=== PATIENT | male | born 1985 | race Two or more races ===

== ENCOUNTER 2021-03-07 11:49 | Outpatient (REF) | payer MEDICAID, SELFPAY ==
--- NOTE | ~2021-03-07 | XR_ITS ---
EXAMINATION: XR LUMBOSACRAL SPINE WITH OBLIQUES CLINICAL INFORMATION: Low back pain. COMPARISON: 10/12/2017 TECHNIQUE: AP, both oblique, and lateral views of the lumbar spine. Lateral view of the lumbosacral junction. FINDINGS: There are 5 lwe-crp-yzcfald lumbar vertebrae. Pedicles are intact. No acute fracture, spondylolisthesis, or spondylolysis identified. Disc spaces are maintained. There is mild anterior spurring seen at T11 through L1. No significant sacroiliac joint abnormality is appreciated. No significant change from previous study. XR/XR lumbar spine 4V min IMPRESSION: Mild lumbar spondylosis without acute fracture, spondylolisthesis, or spondylolysis.
== END 2021-03-07 11:50 | disposition home or self-care (01) ==
LOC: HO.XRAY 11:49
PROVIDERS: PCP Registered Nurse; Visit Provider Registered Nurse
DX: M54.50 Low back pain, unspecified (principal)
CPT/HCPCS: 72110

== ENCOUNTER 2024-02-10 07:57 | Outpatient (AMB) | payer OTHER, SELFPAY ==
[2024-02-10 08:06] VITALS: BP 110/74; PULSE 77; O2SAT 96; BMI 32.9
--- NOTE | 2024-02-10 08:06 | A.OFFPC_ITS ---
Vital Signs 02/10/24 08:06 Height 5 ft 6 in Weight 204 lb BMI 32.9 BP 110/74 Blood Pressure Location Lt brachial Position Sitting Pulse 77 Pulse Source Pulse Oximeter Pulse Oximetry (%) 96 Oxygen Delivery Method Room Air Intake Visit Reasons: annual exam/establish care Clinical Quality Analyst Required: No Allergies No Known Allergies [No Known Allergies*] Allergy (Verified 02/10/24 08:19) Medication List - Last Reconciled 02/10/24 by Genie Dean PA-C albuterol sulfate 90 mcg/actuation 2 puffs inhalation QID PRN Tobacco use date assessed: 02/10/24 Dental Screening Dental Screen Date: 02/10/24 Did you have a dental visit in the last 12 months?: No Did you have a dental problem in the last 6 months where you did not have access to dental care?: No HPI annual exam/establish care HPI Details 38-year-old male coming to the office fo r the 1st time. Previously a patient at [facility] last seen 2 years ago. He does have a history of asthma and uses albuterol inhaler daily and occasionally multiple times per day. He mentions he has increased wheezing at nighttime without nighttime awakenings. He does mentioned he has a dry patch of skin on the inside of his elbow and he has been using hydrocortisone cream on with some mild improvement. Otherwise has no acute concerns today [facility] Family History (Updated 02/10/24 @ 08:20 by Genie Dean PA-C) Father HIV (human immunodeficiency virus infection) Social History Housing: House Patient Tobacco Use Status: Former Tobacco user Tobacco use type: Cigarette service: No Current occupational status: employed Cognitive needs: No Hearing needs: No Vision needs: No Questionnaire PHQ-9 Over the last 2 weeks, how often have you been bothered by any of the following problems? 1. Little interest or pleasure in doing things: not at all 2. Feeling down, depressed, or hopeless: not at all 3. Trouble falling or staying asleep, or sleeping too much: not at all 4. Feeling tired or having little energy: not at all 5. Poor appetite or overeating: several days 6. Feeling bad about yourself - or that you are a failure or have let yourself or your family down: not at all 7. Trouble concentrating on things, such as reading the newspaper or watching television: not at all 8. Moving or speaking so slowly that other people could have noticed. Or the opposite - being so fidgety or restless that you have been moving around a lot more than usual: not at all 9. Thoughts that you would be better off or of hurting yourself in some way: not at all Total score: 1 Depression Screening Interpretation: Negative Depression Screening Done: Yes 62250 - PHQ-9 Billing: Yes Source: Developed by Drs. Amaury Erickson, Amy Caraballo, Sánchez Osborne and colleagues, with an educational rah from [employer]. Thrive Questionnaire I am a: Patient What is your living situation today?: I have a steady place to live Within the past 12 months, did the food you bought not last and you didn't have the money to get more?: Never true Within the past 12 months, did you worry whether your food would run out before you got money to buy more?: Never true Do you have trouble paying for medicines?: Yes Do you have trouble getting transportation to medical appointments?: No Do you have trouble paying your heating and electricity bill?: No Do you have trouble taking care of your child, family member or friend?: No Do you have trouble with day-to-day activities such as bathing, preparing meals, shopping, managing finances, etc.?: No Are you currently unemployed and looking for a job?: No Are you interested in more education?: No Please select the resources that you would like help with: Paying for medicine Currently or been in a relationship where the following occur: No concerns reported THRIVE Score: 0 AUDIT C Alcohol Use Questionnaire (AUDIT-C) 1. How often do you have a drink containing alcohol?: Monthly or less 2. How many drinks containing alcohol do you have on a typical day when you are drinking?: 1 or 2 3. How often do you have six or more drinks on one occasion?: Never Total Score: 1 RENNY-7 AMB Questionnaire RENNY-7 Date RENNY - 7 assessed: 02/10/24 Feeling nervous, anxious, or on edge: 0 = Not at all Not being able to stop or control worryin = Not at all Worrying too much about different things: 0 = Not at all Trouble relaxin = Not at all Being so restless that it is hard to sit still: 0 = Not at all Becoming easily annoyed or irritable: 0 = Not at all Feeling afraid as if something awful might happen: 0 = Not at all Total RENNY-7 score (0-4 normal; 5-9 mild; 10-14 moderate; 15-21 severe): 0 Source: Developed by Drs. Amaury Erickson, Amy Caraballo, Sánchez Osborne and colleagues, with an educational rah from [employer]. RENNY-7 Assessment Billing RENNY-7 Assessment Tool: RENNY-7 Assessment 84146 Review of Systems Const Denies body aches, Denies fatigue, Denies fever(s), Denies frequent falls, Denies headache(s) and Denies weakness Eyes Denies change in vision and Reports requires corrective lenses ENT Denies dysphagia, Denies dizziness, Denies facial pain, Denies headache(s) and Denies odynophagia Card Denies chest pain, Denies syncope, Denies irregular heart rhythm, Denies leg edema, Denies lightheadedness and Reports dyspnea (with asthma) Resp Denies cough, Reports dyspnea (with asthma) and Reports wheezing (at night ) GI Denies abdominal pain, Denies constipation, Denies dysphagia, Denies dyspepsia, Denies diarrhea, Denies nausea, Denies odynophagia and Denies vomiting Denies dysuria, Denies urinary frequency, Denies urinary hesitancy and Denies urinary urgency Musc Reports back pain (low back pain) and Denies myalgias Skin/Breast Reports system reviewed and no additional complaints, except as documented Neuro Denies dizziness, Denies syncope, Denies frequent falls, Denies headache(s) and Denies weakness Psych Reports no additional complaints Endo Denies fatigue Aller/Immun Reports wheezing (at night ) Physical exam (Primary Care) Vital Signs: Last Vital Signs Pulse 77 02/10/24 08:06 BP 110/74 02/10/24 08:06 Pulse Ox 96 02/10/24 08:06 Oxygen Delivery Method Room Air 02/10/24 08:06 BMI result Body Mass Index 32.9 Tobacco/Smoking Status: Tobacco use Status Tobacco use date assessed 02/10/24 02/10/24 08:09 Patient Tobacco Use Status Former Tobacco user 02/10/24 08:10 Tobacco use type Cigarette 02/10/24 08:13 PHQ-9: PHQ-9 Score PHQ-9: Total score 1 02/10/24 08:13 Depression Screening Interpretation: Negative Currently or been in a relationship where the following occur: No concerns reported Const General: cooperative, healthy appearing, comfortable and no acute distress Orientation/consciousness: patient oriented x3 HENMT Head: Yes normocephalic Ears: hearing grossly normal bilaterally, external ears normal, TM's normal bilaterally and EAC's normal General nose exam: Normal external nose present Face and sinus: Yes normal facial exam and Yes sinuses nontender Mouth: Normal oral and palatal mucosa present and tongue normal Throat: Yes posterior oropharynx normal Eyes General: appearance normal, both eyes and all related structures Conjunctivae: conjunctivae normal Pupils: Equal, round and reactive pupils present EOM: EOMs intact bilaterally and No Nystagmus present Neck Neck: Yes normal visual inspection, Yes full ROM and Yes no lymphadenopathy Carotids: no bruits Chest Chest palpation & inspection: normal inspection of the chest Resp Effort & Inspection: normal respiratory effort Auscultation: clear to auscultation bilaterally, no crackles, no rales, no rhonchi, no wheezes and breath sounds present Cardio Rate: regular rate Rhythm: regular rhythm Peripheral pulses: radial pulses present and dorsalis pedis present GI Inspection: Yes normal to inspection and No Abdominal wall edema Palpation (GI): Soft to palpation, not firm and nontender Auscultation: normal bowel sounds Rectal Exam - Male: Yes deferred General: Yes no CVA tenderness Back/Spine/Pelvis Back: no CVA tenderness Skin Other: Patch of eczematous rash over right antecubital fossa Neuro General: patient oriented x3 Cranial nerves: Yes Equal, round and reactive pupils present, Yes Midline tongue present, Yes Ability to bilaterally elevate shoulders present and No Nystagmus present Gait exam (Neuro): Normal gait present Extrem General: Yes normal to inspection, Yes full ROM, No no pedal edema and No edema Psych Speech and movement: Normal speech and movement present Affect: normal affect Insight: Good insight present (Psych) Judgement: Good judgement present (Psych) Coding Level of Care Code New Pt Level 3 (94876) New Pt Prev Care 40-64y(89891) Diagnoses Asthma J45.909 Eczema L30.9 Annual physical exam Z00.00 Additional Codes RENNY-7 Assessment Billing - RENNY-7 Assessment Tool: RENNY-7 Assessment 60269 ([id number]) Assessment & Plan Assessment & Plan (1) Asthma: Code(s): J45.909 - Unspecified asthma, uncomplicated Category: Medical Plan: Patient's asthma is not well controlled at this time as he uses his albuterol inhaler multiple times per day. Advised adding inhaled corticosteroid to medication regimen and following up in 3 months. If symptoms do not improve or worsen please reach out to the office before your next appointment. (2) Eczema: Code(s): L30.9 - Dermatitis, unspecified Category: Medical Plan: Patient has eczematous rash over right antecubital fossa advised using triam cinolone cream as needed for flares do not use his cream more than 2 weeks at a time. May use Aquaphor or Eucerin for maintenance therapy. (3) Annual physical exam: Code(s): Z00.00 - Encounter for general adult medical examination without abnormal findings Category: Medical Plan: Patient is up-to-date on all recommended routine screenings and vaccinations for his age. Updated blood work ordered and we will follow up in 3 months for follow up on asthma. Plan This note was constructed using voice recognition software. While every effort has been made to ensure accuracy and hand molder and caster, still areas may have been included sometimes these areas may affect the content or meeting of the given symptoms. Total time spent caring for the patient today was 30 minutes. This includes time spent before the visit reviewing the chart, time spent during the visit, and time spent after the visit and documentation. Orders: Orders Comprehensive Met. Panel Today Z00.00 - Encounter for general adult medical examination without abnormal findings UA CC w/rflx Micro + Cult Today R35.89 - Other polyuria Complete Blood Count Auto Diff Today Z00.00 - Encounter for general adult medical examination without abnormal findings Free T4 (Free Thyroxine) Today Z00.00 - Encounter for general adult medical examination without abnormal findings Hemoglobin A1c Today Z00.00 - Encounter for general adult medical examination without abnormal findings Lipid Panel Today Z00.00 - Encounter for general adult medical examination without abnormal findings Vitamin D 25-OH (D2 and D3) Today Z00.00 - Encounter for general adult medical examination without abnormal findings Vitamin B12 and Folate Today Z00.00 - Encounter for general adult medical examination without abnormal findings TSH reflex Free T4 Today Z00.00 - Encounter for general adult medical examination without abnormal findings Medications: New beclomethasone dipropionate 40 mcg/actuation (Qvar RediHaler) 1 inh inhalation BID 10.6 grams 0RF triamcinolone acetonide 0.5% 1 appl topical DAILY 15 grams 0RF
== END 2024-02-10 08:39 | disposition home or self-care (01) ==
PROVIDERS: PCP Registered Nurse
DX: Z00.00 Encounter for general adult medical examination without abnormal findings (principal); J45.909 Unspecified asthma, uncomplicated; L30.9 Dermatitis, unspecified

== ENCOUNTER → 2024-02-10 07:57 | Outpatient (BNVA) | payer OTHER, SELFPAY | PROVIDERS: PCP Registered Nurse | DX: Z00.01 Encounter for general adult medical examination with abnormal findings (principal); L30.9 Dermatitis, unspecified; J45.909 Unspecified asthma, uncomplicated | CPT/HCPCS: 96127; 99202; 99386 ==

== ENCOUNTER 2025-02-12 08:05 | Outpatient (AMB) | payer OTHER, SELFPAY ==
--- NOTE | 2025-02-12 08:13 | MHC.PC.OV ---
Vital Signs 02/12/25 08:14 Height 5 ft 6 in Weight 218 lb BMI 35.2 BP 122/84 Blood Pressure Location Lt brachial Position Sitting Pulse 90 Pulse Source Pulse Oximeter Temp 97.1 F Temp Source Temporal Artery Scan Pulse Oximetry (%) 93 Oxygen Delivery Method Room Air Intake Visit Reasons: Annual Exam Allergies No Known Allergies (No Known Allergies*) Allergy (Verified 02/12/25 08:19) Medication List - Last Reconciled 02/12/25 by Genie Dean PA-C albuterol sulfate 90 mcg/actuation 2 puffs inhalation QID PRN fluticasone furoate 100 mcg/actuation (Arnuity Ellipta) 1 inh inhalation DAILY triamcinolone acetonide 0.5% 1 appl topical DAILY Tobacco use date assessed: 02/12/25 Dental Screening Dental Screen Date: 02/12/25 Did you have a dental visit in the last 12 months?: Yes Did you have a dental problem in the last 6 months where you did not have access to dental care?: No Was dental information given to patient?: Patient has dentist HPI Annual Exam HPI Details 39-year-old male with past medical history of eczema and asthma last seen 01/2024 coming in for annual exam. Presenting with a routine physical examination and management of chronic conditions. The patient reports using albuterol approximately four times a week due to dyspnea and chest tightness, particularly during exertion or at night. The patient has not been using the prescribed daily inhaler, Arnuity, which has led to poor asthma control. The patient denies smoking and reports no recent hospitalizations or new diagnoses. The patient experiences difficulty breathing due to animal allergies, exacerbated by the presence of cats and dogs at home. The patient takes daily allergy medication but is interested in exploring allergy shots or drops for long-term relief. The patient reports a recent flare-up of eczema, which has been managed with odxz-mrr-slxnxne cortisone cream. The patient requests a refill of the prescription cream previously provided. vaccines: declined flu shot and Tdap is UTD eye doctor: [facility] Family History Father HIV (human immunodeficiency virus infection) Social History Housing: House Patient Tobacco Use Status: Former Tobacco user Tobacco use type: Cigarette service: No Current occupational status: employed Current occupation: [employer] Cognitive needs: No Hearing needs: No Vision needs: No Questionnaire PHQ-9 Over the last 2 weeks, how often have you been bothered by any of the following problems? 1. Little interest or pleasure in doing things: not at all 2. Feeling down, depressed, or hopeless: not at all 3. Trouble falling or staying asleep, or sleeping too much: not at all 4. Feeling tired or having little energy: not at all 5. Poor appetite or overeating: not at all 6. Feeling bad about yourself - or that you are a failure or have let yourself or your family down: not at all 7. Trouble concentrating on things, such as reading the newspaper or watching television: not at all 8. Moving or speaking so slowly that other people could have noticed. Or the opposite - being so fidgety or restless that you have been moving around a lot more than usual: not at all 9. Thoughts that you would be better off or of hurting yourself in some way: not at all Total score: 0 Source: Developed by Drs. Amaury Erickson, Amy Caraballo, Sánchez Osborne and colleagues, with an educational rah from [employer]. Thrive Questionnaire Date Thrive assessed: 02/12/25 I am a: Patient What is your living situation today?: I have a steady place to live Within the past 12 months, did the food you bought not last and you didn't have the money to get more?: Never true Within the past 12 months, did you worry whether your food would run out before you got money to buy more?: Never true Do you have trouble paying for medicines?: No Do you have trouble getting transportation to medical appointments?: No Do you have trouble paying your heating and electricity bill?: No Do you have trouble taking care of your child, family member or friend?: No Do you have trouble with day-to-day activities such as bathing, preparing meals, shopping, managing finances, etc.?: No Are you currently unemployed and looking for a job?: No Are you interested in more education?: No Please select the resources that you would like help with: None Currently or been in a relationship where the following occur: No concerns reported THRIVE Score: 0 AUDIT C Alcohol Use Questionnaire (AUDIT-C) 1. How often do you have a drink containing alcohol?: Monthly or less 2. How many drinks containing alcohol do you have on a typical day when you are drinking?: 1 or 2 3. How often do you have six or more drinks on one occasion?: Never Total Score: 1 RENNY-7 AMB Questionnaire RENNY-7 Date RENNY - 7 assessed: 02/12/25 Feeling nervous, anxious, or on edge: 0 = Not at all Not being able to stop or control worryin = Not at all Worrying too much about different things: 0 = Not at all Trouble relaxin = Not at all Being so restless that it is hard to sit still: 0 = Not at all Becoming easily annoyed or irritable: 0 = Not at all Feeling afraid as if something awful might happen: 0 = Not at all Total RENNY-7 score (0-4 normal; 5-9 mild; 10-14 moderate; 15-21 severe): 0 Source: Developed by Drs. Amaury Erickson, Amy Caraballo, Sánchez Osborne and colleagues, with an educational rah from [employer]. Review of Systems Const Denies body aches, Denies fatigue, Denies fever(s), Denies frequent falls, Denies headache(s) and Denies weakness Eyes Reports no additional complaints and Denies change in vision ENT Denies dysphagia, Denies dizziness, Denies facial pain, Denies headache(s) and Denies odynophagia Card Denies chest pain, Denies syncope, Denies irregular heart rhythm, Denies leg edema, Denies lightheadedness, Denies dyspnea and Reports dyspnea on exertion Resp Details: chest tightness with asthma Denies cough, Denies dyspnea and Reports dyspnea on exertion GI Denies constipation, Denies dysphagia, Denies dyspepsia, Denies diarrhea, Denies nausea, Denies odynophagia and Denies vomiting Denies dysuria, Denies urinary frequency, Denies urinary hesitancy and Denies urinary urgency Musc Denies back pain and Denies myalgias Skin/Breast Reports system reviewed and no additional complaints, except as documented Neuro Denies dizziness, Denies syncope, Denies frequent falls, Denies headache(s) and Denies weakness Psych Reports no additional complaints Endo Denies fatigue Physical exam (Primary Care) Vital Signs: Last Vital Signs Temp 97.1 F 02/12/25 08:14 Pulse 90 02/12/25 08:14 BP 122/84 02/12/25 08:14 Pulse Ox 93 02/12/25 08:14 Oxygen Delivery Method Room Air 02/12/25 08:14 BMI result Body Mass Index 35.2 Tobacco/Smoking Status: Tobacco use Status Tobacco use date assessed 02/12/25 02/12/25 08:18 Patient Tobacco Use Status Former Tobacco user 02/12/25 08:18 Tobacco use type Cigarette 02/12/25 08:18 PHQ-9: PHQ-9 Score PHQ-9: Total score 0 02/12/25 08:19 Thrive Assessment: Date of Thrive Assessment Date Thrive assessed 02/12/25 02/12/25 08:18 Currently or been in a relationship where the following occur: No concerns reported Const General: cooperative, healthy appearing, comfortable and no acute distress Orientation/consciousness: patient oriented x3 HENMT Head: Yes normocephalic Ears: hearing grossly normal bilaterally, external ears normal, TM's normal bilaterally and EAC's normal General nose exam: Normal external nose present Face and sinus: Yes normal facial exam and Yes sinuses nontender Mouth: Normal oral and palatal mucosa present and tongue normal Throat: Yes posterior oropharynx normal Eyes General: appearance normal, both eyes and all related structures Conjunctivae: conjunctivae normal Pupils: Equal, round and reactive pupils present EOM: EOMs intact bilaterally and No Nystagmus present Neck Neck: Yes normal visual inspection, Yes full ROM and Yes no lymphadenopathy Chest Chest palpation & inspection: normal inspection of the chest Resp Effort & Inspection: normal respiratory effort Auscultation: clear to auscultation bilaterally, no crackles, no rales, no rhonchi, no wheezes and breath sounds present Cardio Rate: regular rate Rhythm: regular rhythm Peripheral pulses: radial pulses present and dorsalis pedis present GI Inspection: Yes normal to inspection and No Abdominal wall edema Palpation (GI): Soft to palpation, not firm and nontender Auscultation: normal bowel sounds Rectal Exam - Male: Yes deferred General: Yes no CVA tenderness Back/Spine/Pelvis Back: no CVA tenderness Skin General skin exam: no rashes or lesions noted Neuro General: patient oriented x3 Cranial nerves: Yes Equal, round and reactive pupils present, Yes Midline tongue present, Yes Ability to bilaterally elevate shoulders present and No Nystagmus present Gait exam (Neuro): Normal gait present Extrem General: Yes normal to inspection, Yes full ROM, No no pedal edema and No edema Psych Speech and movement: Normal speech and movement present Affect: normal affect Insight: Good insight present (Psych) Judgement: Good judgement present (Psych) Coding Level of Care Code Est Pt Prev Care 40-64y([id number]) Diagnoses Annual physical exam Z00.00 Eczema L30.9 Asthma J45.909 Environmental allergies Z91.09 Obesity (BMI 30-39.9) E66.9 Assessment & Plan Assessment & Plan (1) Annual physical exam: Code(s): Z00.00 - Encounter for general adult medical examination without abnormal findings Category: Medical Plan: Patient is up-to-date on all recommended routine screenings and vaccinations for his age. He is due for blood work which was ordered today and patient insurance he will have this done prior to his next visit. Plan to follow up in 3 months or sooner as needed. (2) Eczema: Code(s): L30.9 - Dermatitis, unspecified Category: Medical Plan: The patient will continue using toym-dli-ocgwsms cortisone cream and has been provided a refill of the prescription cream. (3) Asthma: Code(s): J45.909 - Unspecified asthma, uncomplicated Category: Medical Plan: Patient has not been taking his Arnuity as he did run out. Plan to restart at this time. The patient will resume the use of the daily inhaler, Arnuity, to improve asthma control and reduce reliance on albuterol. A follow-up appointment in three months is planned to reassess asthma control and review blood work results. Patient agrees to reach out if he is unable to obtain the Arnuity inhaler (4) Environmental allergies: Code(s): Z91.09 - Other allergy status, other than to drugs and biological substances Category: Medical Plan: Referral was placed to mainframe systems engineer today at patient request and continue to use eyun-fhn-[id number] allergy medication. (5) Obesity (BMI 30-39.9): Code(s): E66.9 - Obesity, unspecified Category: Medical Plan: Healthy diet and regular exercise is encouraged. Plan During the visit, I discussed the importance of resuming the daily inhaler for asthma control and the potential benefits of allergy shots or drops for long-term relief from allergic rhinitis. We also talked about the need for fasting blood work to check cholesterol levels and the importance of dietary modifications to manage weight. I advised the patient to contact the office if there are any issues with medication coverage or if symptoms persist. This note was constructed using voice recognition software. While every effort has been made to ensure accuracy and saxophone teacher, still areas may have been included sometimes these areas may affect the content or meeting of the given symptoms. Total time spent caring for the patient today was 30 minutes. This includes time spent before the visit reviewing the chart, time spent during the visit, and time spent after the visit and documentation. Patient was informed and verbally consented to the use of an ambient scribe for clinic note documentation during this visit. Orders: Orders Vitamin B12 and Folate Today Z13.21 - Encounter for screening for nutritional disorder TSH reflex Free T4 Today Z13.29 - Encounter for screening for other suspected endocrine disorder Complete Blood Count Auto Diff Today Z13.0 - Encounter for screening for diseases of the blood and blood-forming organs and certain disorders involving the immune mechanism, Z91.09 - Other allergy status, other than to drugs and biological substances Lipid Panel Today Z13.220 - Encounter for screening for lipoid disorders Comprehensive Met. Panel Today Z13.1 - Encounter for screening for diabetes mellitus Vitamin D 25-OH Total Today Z13.21 - Encounter for screening for nutritional disorder Hemoglobin A1c Today E11.65 - Type 2 diabetes mellitus with hyperglycemia, Z13.1 - Encounter for screening for diabetes mellitus Referrals Allergy & Immunology Referral Z91.09 - Other allergy status, other than to drugs and biological substances Medications: New albuterol sulfate 90 mcg/actuation 2 puffs inhalation QID PRN 8.5 grams 1RF wheezing Refilled fluticasone furoate 100 mcg/actuation (Arnuity Ellipta) 1 inh inhalation DAILY 30 ea 3RF triamcinolone acetonide 0.5% 1 appl topical DAILY 15 grams 0RF
[2025-02-12 08:14] VITALS: BP 122/84; PULSE 90; TEMP 36.2; O2SAT 93; BMI 35.2
== END 2025-02-12 09:20 | disposition home or self-care (01) ==
LOC: HO.HMCH 08:05
DX: Z00.00 Encounter for general adult medical examination without abnormal findings (principal); E66.9 Obesity, unspecified; Z68.35 Body mass index [BMI] 35.0-35.9, adult; L30.9 Dermatitis, unspecified; J45.909 Unspecified asthma, uncomplicated; Z91.09 Other allergy status, other than to drugs and biological substances

== ENCOUNTER → 2025-02-12 08:05 | Outpatient (BNVA) | payer OTHER, SELFPAY | DX: Z00.00 Encounter for general adult medical examination without abnormal findings (principal); L30.9 Dermatitis, unspecified; J45.909 Unspecified asthma, uncomplicated; E66.9 Obesity, unspecified; E11.65 Type 2 diabetes mellitus with hyperglycemia; Z68.35 Body mass index [BMI] 35.0-35.9, adult; Z91.09 Other allergy status, other than to drugs and biological substances | CPT/HCPCS: 99396 ==